=== PATIENT | male | born 1995 | race Caucasian/White ===

== ENCOUNTER → 2024-05-13 | Outpatient (CLI) | payer OTHER, SELFPAY | LOC: M SOG 11:15 | PROVIDERS: ATTEND Orthopaedic Surgery Hand Surgery | DX: M19.041 Primary osteoarthritis, right hand (principal) ==

== ENCOUNTER → 2024-06-03 | Outpatient (CLI) | payer BC, OTHER, SELFPAY | LOC: M SOG 07:56 | PROVIDERS: ATTEND Physician Assistant | DX: S63.236A Subluxation of proximal interphalangeal joint of right little finger, initial encounter (principal); M19.041 Primary osteoarthritis, right hand; M79.89 Other specified soft tissue disorders ==

== ENCOUNTER → 2024-07-08 | Outpatient (CLI) | payer OTHER | LOC: M SOG 11:23 | PROVIDERS: ATTEND Orthopaedic Surgery Hand Surgery | DX: S63.236A Subluxation of proximal interphalangeal joint of right little finger, initial encounter (principal); W18.30XA Fall on same level, unspecified, initial encounter; Y92.009 Unspecified place in unspecified non-institutional (private) residence as the place of occurrence of the external cause ==

== ENCOUNTER → 2024-08-26 | Outpatient (CLI) | payer BC | LOC: M SOG 06:49 | PROVIDERS: ATTEND Physician Assistant | DX: Z53.9 Procedure and treatment not carried out, unspecified reason (principal) ==